=== PATIENT | male | born 1990 | race Caucasian/White ===

== ENCOUNTER 2024-02-23 18:26 | Emergency (ER) | payer SELFPAY ==
[~2024-02-23] VITALS: Ht 175.3 cm; Wt 72.0 kg
[2024-02-23 18:29] VITALS: O2SAT 100
[2024-02-23 19:41] LABS: BASOPHILS % 0.4 % (0.0-2.0); EOSINOPHILS % 0.1 % (0.0-5.0); HEMATOCRIT. 52.4 % (42.0-52.0); HEMOGLOBIN. 17.3 g/dL (14.0-18.0); LYMPHOCYTES % 7.7 % (20.0-50.0); MEAN CORPUSCULAR HEMOGLOBIN 30.5 pg (28.0-32.0); MEAN CORPUSCULAR VOLUME 92.4 fL (80.0-94.0); MONOCYTES % 10.4 % (2.0-8.0); NEUTROPHILS % 81.4 % (40.0-76.0); PLATELET 248 x1000/uL (130-400); RED BLOOD CELL COUNT 5.67 mill/uL (4.7-6.1); RED CELL DISTRIBUTION WIDTH 14.2 % (11.6-14.6); WHITE BLOOD COUNT 13.5 x1000/uL (4.5-11.0)
[2024-02-23 19:47] LABS: CHLORIDE 104 mEq/L (98-107); POTASSIUM 3.6 mEq/L (3.5-5.1); SODIUM 142 mEq/L (136-145)
[2024-02-23 19:48] LABS: CALCIUM 10.9 mg/dL (8.7-10.4); CARBON DIOXIDE 24 mEq/L (21-32)
[2024-02-23 19:52] LABS: DIFFERENTIAL COMMENT 1
[2024-02-23 19:53] LABS: CREATININE 1.2 mg/dL (0.6-1.3); GLUCOSE 115 mg/dL (70-105)
[2024-02-23 19:54] LABS: ETHANOL BLOOD < 10 mg/dL (<10)
[2024-02-23 19:55] LABS: ACETAMINOPHEN < 2 ug/mL (10-30)
[2024-02-23 19:56] LABS: UREA NITROGEN BLOOD < 5 mg/dL (9-23)
[2024-02-23] MEDS: SODIUM CHLORIDE 0.9% 1,000 ML IV ONE (20:07)
[2024-02-24 00:12] LABS: CLARITY URINE CLEAR (CLEAR); COLOR URINE YELLOW (YELLOW); GLUCOSE URINE NEGATIVE (NEGATIVE); KETONES URINE TRACE (NEGATIVE); LEUKOCYTE ESTERASE URINE NEGATIVE (NEGATIVE); NITRITE URINE NEGATIVE (NEGATIVE); OCCULT BLOOD URINE NEGATIVE (NEGATIVE); PROTEIN URINE NEGATIVE (NEGATIVE); SPECIFIC GRAVITY URINE 1.007 (1.005-1.030); UROBILINOGEN URINE 0.2 E.U./dL (0.2-1.0)
[2024-02-24 00:19] LABS: *AMPHETAMINES SCREEN URINE PRESUMPTIVE POSITIVE (NEGATIVE); *BARBITURATES SCREEN URINE NEGATIVE (NEGATIVE); *BENZODIAZEPINES SCREEN URINE PRESUMPTIVE POSITIVE (NEGATIVE); *COCAINE SCREEN URINE NEGATIVE (NEGATIVE); CANNABINOID URINE SCREEN NEGATIVE (NEGATIVE); ECSTASY MDMA SCREEN URINE CONF.TEST INDICATED (NEGATIVE); METHADONE URINE SCREEN NEGATIVE (NEGATIVE); OPIATES URINE SCREEN NEGATIVE (NEGATIVE); PHENCYCLIDINE URINE SCREEN NEGATIVE (NEGATIVE)
[2024-02-24 08:20] VITALS: BP 98/68; PULSE 82; RESP 16; TEMP 36.89184; O2SAT 100
== END 2024-02-24 10:29 | disposition home or self-care (01) ==
LOC: ER 18:26
DX: R45.851 Suicidal ideations (principal); F19.10 Other psychoactive substance abuse, uncomplicated; R44.3 Hallucinations, unspecified; Z20.822 Contact with and (suspected) exposure to COVID-19
CPT/HCPCS: 80305; 80048; 81003; 80307; 80329; 80320; 85025; 36415; 93005; 96360; 96361; 99285; 87426; J7030; G0480